=== PATIENT | female | born 1970 | race Caucasian/White ===

== ENCOUNTER 2022-06-26 13:00 | Inpatient (IN) | payer MEDICAID ==
[2022-06-29] MEDS ORDERED: Iopamidol 612 MG/ML 100 ML Bottle IV ONE (13:58)
[2022-06-29] MEDS ORDERED: Iopamidol 612 MG/ML 30 ML SDV PO ONE (13:58)
[2022-06-29] MEDS ORDERED: hydrOXYzine HCL 100 MG/2 ML SDV ONE (16:30)
[2022-06-29] MEDS ORDERED: Succinylcholine 200 MG/10 ML MDV ONE (16:30)
[2022-06-29] MEDS ORDERED: HYDROmorphone 1 MG/ML Syringe ONE (16:30)
[2022-06-29] MEDS ORDERED: Dexamethasone 4 MG/ML SDV ONE (16:30)
[2022-06-29] MEDS ORDERED: Glycopyrrolate 0.2 MG/ML 5 ML MDV ONE (16:30)
[2022-06-29] MEDS ORDERED: Propofol 200 MG/20 ML SDV ONE (16:30)
[2022-06-29] MEDS ORDERED: fentaNYL 100 MCG/2 ML SDV ONE ×4 (16:30)
[2022-06-29] MEDS ORDERED: Rocuronium 50 MG/5 ML Vial ONE (16:30)
[2022-06-29] MEDS ORDERED: Ondansetron 4 MG/2 ML SDV ONE (16:30)
[2022-06-29] MEDS ORDERED: ceFAZolin 1 GM Vial ONE (16:30)
[2022-06-29] MEDS ORDERED: Meropenem 500 MG SDV ONE (16:30)
[2022-06-29] MEDS ORDERED: Neostigmine Methylsulfate 1 MG/ML 5 ML Syringe ONE (16:30)
[2022-07-25 10:00] LABS: ESTIMATED GFR 90 mL/min (>60)
[2022-07-25 13:36] LABS: ESTIMATED GFR 110 mL/min (>60)
[2022-07-25 22:07] LABS: ESTIMATED GFR 110 mL/min (>60)
[2022-07-26 08:21] LABS: ESTIMATED GFR 110 mL/min (>60)
[2022-07-26 09:21] LABS: ESTIMATED GFR 110 mL/min (>60)
[2022-07-26 10:06] LABS: ESTIMATED GFR 110 mL/min (>60)
[2022-07-27 01:52] LABS: ESTIMATED GFR 110 mL/min (>60)
[2022-07-27 12:46] LABS: ESTIMATED GFR 106 mL/min (>60)
[2022-07-27 13:46] LABS: ESTIMATED GFR 78 mL/min (>60)
[2022-07-27 16:19] LABS: ESTIMATED GFR 110 mL/min (>60)
[2022-07-28 14:06] LABS: ESTIMATED GFR 90 mL/min (>60)
== END 2022-07-07 16:00 | disposition home or self-care (01) | DRG 330 ==
LOC: JP.ED 13:00 → INTOOBSV 17:45 → JP.MS 17:45 → UNDOADMOB 17:45 → JP.ZCENSUS 17:45 → EDSTATUS 06-29 07:30 → JP.ED 06-29 21:00 → INTOOBSV 06-30 05:45 → OBSVTOIN 06-30 05:45 → UNDODISIN 07-07 16:00
PROVIDERS: ADMIT Internal Medicine; ATTEND Internal Medicine
PROC: 0DN80ZZ Release Small Intestine, Open Approach (ICD-10-PCS; principal; 2022-06-29)
PROC: 0DQ80ZZ Repair Small Intestine, Open Approach (ICD-10-PCS; 2022-06-29)
PROC: 0DJD4ZZ Inspection of Lower Intestinal Tract, Percutaneous Endoscopic Approach (ICD-10-PCS; 2022-06-29)
PROC: 0DH67UZ Insertion of Feeding Device into Stomach, Via Natural or Artificial Opening (ICD-10-PCS; 2022-07-03)
PROC: 3E0336Z Introduction of Nutritional Substance into Peripheral Vein, Percutaneous Approach (ICD-10-PCS; 2022-07-03)
PROC: 02H633Z Insertion of Infusion Device into Right Atrium, Percutaneous Approach (ICD-10-PCS; 2022-07-03)
DX: K56.600 Partial intestinal obstruction, unspecified as to cause (principal); E44.0 Moderate protein-calorie malnutrition; J98.11 Atelectasis; K91.89 Other postprocedural complications and disorders of digestive system; K56.7 Ileus, unspecified; Z90.710 Acquired absence of both cervix and uterus; Z88.5 Allergy status to narcotic agent; Z79.899 Other long term (current) drug therapy
CPT/HCPCS: 36415; 51701; 71046; 74018; 74018-26; 74019; 74019-26; 74021; 74021-26; 74176; 74177; 74177-26; 80048; 80053; 82947; 83605; 83735; 84100; 84134; 84443; 84478; 85027; 93970; 93970-26; 94667; 94668; 94762; C1751; J0171; J0330; J0690; J1100; J1170; J2185; J2405; J2704; J2710; J2795; J3010; J3410; J3490; Q9967

== ENCOUNTER 2022-07-08 17:42 | Emergency (ER) | payer MEDICAID ==
[2022-07-08 18:00] VITALS: BP 125/78; PULSE 100
[2022-07-08] MEDS ORDERED: Sodium Chloride 0.9% 10 ML Syringe FLUSH PRN (19:01)
[2022-07-08] MEDS ORDERED: Sodium Chloride 0.9% 75 ML IV SCH (19:30)
[2022-07-08] MEDS ORDERED: Iopamidol 612 MG/ML 100 ML Bottle IV SCH (19:30)
== END 2022-07-08 19:31 | disposition home or self-care (01) ==
LOC: JP.ED 17:42
DX: Z48.89 Encounter for other specified surgical aftercare (principal); Z88.5 Allergy status to narcotic agent; Z79.899 Other long term (current) drug therapy; Z90.710 Acquired absence of both cervix and uterus
CPT/HCPCS: 99282